=== PATIENT | female | born 1985 | race Caucasian/White ===

== ENCOUNTER 2020-09-20 02:51 | Emergency (ER) | payer MEDICAID ==
[~2020-09-20] VITALS: Ht 170.2 cm; Wt 137.0 kg
[2020-09-20] MEDS ORDERED: LORA0.5T21 PO (03:15)
--- NOTE | 2020-09-20 03:15 | PHYS DOC ---
Past History Past Medical History: Anxiety, Cancer (thyroid), Diabetes, Hypertension Additional Past Surgical Histo: Thyroidectomy Smoking: Cigarettes Alcohol Use: None Drug Use: None General Adult EDM: Chief Complaint: ANXIETY/PANIC ATTACK HPI: HPI: 35-year-old female presents with report of increased anxiety since yesterday. Patient reports she has taken her previously prescribed hydroxyzine 25 mg tablets 3 times daily without significant improvement of her anxiety. Patient reports they recently moved to the area. Reports increased life stressors. Denies suicidal or homicidal ideation. Patient reports she feels she cannot break this current panic attack and seeks help. Denies . Patient reports shortness of breath which is consistent with her prior panic attacks. Review of Systems: Review of Systems: Constitutional: Denies fever or chills Eyes: Denies redness or eye pain HENT: Denies nasal congestion or sore throat Respiratory: Denies cough; reports shortness of breath Cardiovascular: Denies chest pain or palpitations GI: Denies abdominal pain, nausea, or vomiting : Denies dysuria or hematuria Musculoskeletal: Denies back pain or joint pain Integument: Denies rash or skin lesions Neurologic: Denies headache, focal weakness or sensory changes Complete systems were reviewed and found to be within normal limits, except as documented in this note. Physical Exam: PE: Constitutional: Well developed, obese, no acute distress, non-toxic appearance HENT: Normocephalic, atraumatic Eyes: PERRL, EOMI, conjunctiva normal, no discharge, no nystagmus Neck: Normal range of motion, no tenderness, supple Lungs & Thorax: No respiratory distress, equal chest rise and fall Skin: Warm, dry, no erythema, no rash Extremities: No tenderness, ROM intact, no edema Neurologic: Alert and oriented X 3, normal motor function, normal sensory function, no focal deficits noted Psychologic: Affect anxious, judgment normal, denies suicidal or homicidal ideation EKG: EKG: [] Radiology/Procedures: Radiology/Procedures: [] Course & Med Decision Making: Course & Med Decision Making Patient presents with HPI and physical exam consistent for acute on chronic anxiety exacerbation. Patient reports increased life stressors. Patient reports symptoms similar to prior episodes but lasting longer than her typical panic attacks and not responsive to her previously prescribed medications. IM Ativan therefore provided. Patient stable for discharge with outpatient follow-up with PCP/mental health. Numbers for [facility] provided as well as list of PCPs in the area. Discussed findings and plan with patient, who acknowledges understanding and agreement. Yan Disclaimer: Yan Disclaimer: This electronic medical record was generated, in whole or in part, using a voice recognition dictation system. Departure Departure: Impression: Primary Impression: Panic attack Disposition: 01 DC HOME SELF CARE/HOMELESS Condition: STABLE Referrals: PCP,NO (PCP) Patient Instructions: Anxiety and Panic Attacks, [id number] Additional Instructions: Please call and make an appointment to follow with a family physician and or follow with the [facility] or [facility] for mental health. [facility] Address: [address] [place] [id number] Please call [facility] at to seek help for your mental health and/or drug/alcohol abuse. Scripts Lorazepam (ATIVAN ) 0.5 Mg Tablet 0.5 MG PO PRN TID PRN for ANXIETY, #10 TAB Prov: ADI CLIFFORD DO 09/20/20 ADI CLIFFORD DO Sep 20, 2020 03:15
[2020-09-20 03:45] VITALS: BP 190/122
== END 2020-09-20 03:45 | disposition home or self-care (01) ==
LOC: ER 02:51
DX: F41.0 Panic disorder [episodic paroxysmal anxiety] (principal); I10 Essential (primary) hypertension; E11.9 Type 2 diabetes mellitus without complications; F17.210 Nicotine dependence, cigarettes, uncomplicated
CPT/HCPCS: 96372; 99283; J2060

== ENCOUNTER 2020-10-21 23:16 | Emergency (ER) | payer MEDICAID ==
[~2020-10-21] VITALS: Ht 170.2 cm; Wt 137.0 kg
[~2020-10-21 23:16] MED LIST: LORA0.5T21 PO
[2020-10-21 23:30] VITALS: BP 197/116
--- NOTE | 2020-10-21 23:41 | PHYS DOC ---
Past History Past Medical History: Anxiety, Cancer, Diabetes, Hypertension Additional Past Medical Histor: preeclampsia, thyroid ca Past Surgical History: , Other Additional Past Surgical Histo: Thyroidectomy Smoking: Cigarettes Alcohol Use: None Drug Use: None Adult General Chief Complaint Chief Complaint: ANXIETY/PANIC ATTACK HPI HPI Patient is a 35-year-old female who presents with a chief complaint of seasonal allergy exacerbation and anxiety. States that [place] allergies have been acting up over the last couple of days. States she has had some sneezing, and itchy eyes. States that allergies caused her to have anxiety as well which she is taking hydroxyzine for. States that the hydroxyzine does not seem to be helping with her allergy symptoms. States that since he just got here they do have a primary care physician and would like some information on local physicians as [place]. Denies headache, sore throat, cough, chest pain, shortness of breath, abdominal pain, nausea, vomiting, diarrhea. Denies any other Covid/flu/cold symptoms. States she is otherwise eating and drinking normally. States she is making urine and stool normally for her. Review of Systems Review of Systems Review of systems otherwise unremarkable except noted in HPI Allergies Allergies Allergies Coded Allergies Type Severity Reaction Last Updated Verified morphine Allergy Unknown 09/20/20 Yes Physical Exam Physical Exam Constitutional: Well developed, well nourished, no acute distress, non-toxic appearance. [] HENT: Normocephalic, atraumatic, bilateral external ears normal, oropharynx moist, mild oropharyngeal erythema with no edema, no oral exudates, nose normal. [] Eyes: PERRLA, EOMI, mild bilateral conjunctivitis, no discharge. [] Neck: Normal range of motion, no tenderness, supple, no stridor. [] Cardiovascular:Heart rate regular rhythm, no murmur [] Lungs & Thorax: Bilateral breath sounds clear to auscultation [] Skin: Warm, dry, no erythema, no rash. [] Extremities: No tenderness, no cyanosis, no clubbing, ROM intact, no edema. [] Neurologic: Alert and oriented X 3, normal motor function, normal sensory function, no focal deficits noted. [] Psychologic: Affect normal, judgement normal, mood normal. [] Current Patient Data Vital Signs Vital Signs Date Time Temp Pulse Resp B/P (MAP) Pulse Ox O2 Delivery O2 Flow Rate FiO2 10/21/20 23:30 97.6 100 16 197/116 (143) 96 EKG EKG [] Radiology/Procedures Radiology/Procedures [] Heart Score C/O Chest Pain: No Risk Factors: Risk Factors: DM, Current or recent (<one month) smoker, HTN, HLP, family history of CAD, obesity. Risk Scores: Risk Factors: DM, Current or recent (<one month) smoker, HTN, HLP, family history of CAD, obesity. Course & Med Decision Making Course & Med Decision Making Patient is a 35-year-old female who presents with seasonal allergy symptoms and anxiety Vital signs notable for hypertension. Physical exam noted above. Patient given dose of dexamethasone and Benadryl for seasonal allergy symptoms. Advised to cease taking her hydroxyzine if it is not helping and causes her anxiety until she follows up with her primary care physician. Given list of local primary care physicians in the area and advised to call Friday to discuss ED visit, establish care and need for seasonal allergy management at home as well as possible hypertension. Patient states she has never had hypertension before. Patient grateful, verbalized understanding and agreed with plan of discharge. [] Dragon Disclaimer Dragon Disclaimer This electronic medical record was generated, in whole or in part, using a voice recognition dictation system. Departure Departure: Disposition: 01 DC HOME SELF CARE/HOMELESS Condition: GOOD Referrals: PCP,NO (PCP) MARY ANN DONAHUE MD Patient Instructions: Allergic Conjunctivitis, Allergic Rhinitis, Hypertension Additional Instructions: Please read all of the attached information. As discussed you can use [id number] Afrin, nasal steroids and Benadryl as needed for seasonal allergy symptoms. You were given a list of local primary care physicians. Please call first thing Friday morning to establish care, discuss your ED visit, need for seasonal allergy management at home, anxiety management and evaluation for hypertension. Please come back to the emergency department immediately with new or concerning symptoms as discussed. RAJWINDER DEGROOT MD Oct 21, 2020 23:41
[2020-10-22] MEDS ORDERED: DEXAMETHASONE 4 MG TABLET PO ONE
[2020-10-22] MEDS ORDERED: diphenhydrAMINE HCL 25 MG CAPSULE PO ONE
== END 2020-10-21 23:48 | disposition home or self-care (01) ==
LOC: ER 23:16
DX: R06.2 Wheezing (principal); F41.9 Anxiety disorder, unspecified; E11.9 Type 2 diabetes mellitus without complications; I10 Essential (primary) hypertension; F17.210 Nicotine dependence, cigarettes, uncomplicated; Z90.89 Acquired absence of other organs; Z98.890 Other specified postprocedural states; Z85.850 Personal history of malignant neoplasm of thyroid
CPT/HCPCS: 99283; J8540; Q0163

== ENCOUNTER 2020-10-30 01:53 | Emergency (ER) | payer MEDICAID, OTHER ==
[~2020-10-30] VITALS: Ht 170.2 cm; Wt 149.0 kg
[2020-10-30 01:53] VITALS: BP 177/123
--- NOTE | 2020-10-30 01:54 | PHYS DOC ---
Past History Past Medical History: Anxiety, Cancer, Diabetes, Hypertension Additional Past Medical Histor: preeclampsia, thyroid ca Past Surgical History: , Other Additional Past Surgical Histo: Thyroidectomy Smoking: Cigarettes Alcohol Use: None Drug Use: None General Adult HPI: HPI: ".. I think I am having an allergic reaction.. I took 0.5 mg Ativan.. because I was having a major panic attack.. all my family was over for .. but now my tongue feels fat... " Patient is a 35 year old female who presents with above hx and complaints possible allergic reaction to Ativan. Patient still extremely anxious. Did take a dose of her children's Benadryl 10 mg prior to arrival. Patient has history of previous episodes of anxiety and panic attacks. Last seen for similar condition on 09/20/2020. [facility] for her mental health issues. Patient has history of morbid obesity, hype rtension, cervical cancer, bronchitis, diabetes, anxiety and panic attacks. Patient denies any recent travel. No specific ill contacts. No other new medications . Patient did have intake of multiple food dishes which may have had a new type fluid in it she did not have previous been exposed . Patient does admit to being under extreme emotional stress due to the visitation of magaly szymanski relatives on her 's side of family with a weekend. No history of fever or chills. No history of recent travel. No history of specific ill contacts. Patient denies any history of immunosuppression. Review of Systems: Review of Systems: Constitutional: Denies fever or chills Eyes: Denies change in visual acuity HENT: Complains of nasal congestion and a fat tongue Respiratory: Denies cough or shortness of breath Cardiovascular: Denies chest pain or edema GI: Denies abdominal pain, nausea, vomiting, bloody stools or diarrhea : Denies dysuria Musculoskeletal: Denies back pain or joint pain Integument: Denies rash Neurologic: Denies headache, focal weakness or sensory changes Endocrine: Denies polyuria or polydipsia Lymphatic: Denies swollen glands Psychiatric: History of depression, anxiety and panic attacks Family History: Family History: Noncontributory Current Medications: Current Meds: See nursing for home meds Allergies: Allergies: Allergies Coded Allergies Type Severity Reaction Last Updated Verified morphine Allergy Unknown 09/20/20 Yes Physical Exam: PE: Constitutional: In acute emotional distress, non-toxic appearance. [] HENT: Normocephalic, atraumatic, bilateral external ears normal, oropharynx moist, no oral exudates, nose normal. [] Eyes: PERRLA, EOMI, conjunctiva normal, no discharge. [] Neck: Normal range of motion, no tenderness, supple, no stridor. [] Cardiovascular:Heart rate regular rhythm, no murmur [] Lungs & Thorax: Bilateral breath sounds equal at apex with scattered wheezes on auscultation [] bibasilar crackles Abdomen: Bowel sounds normal, soft, no tenderness, no masses, no pulsatile masses. Morbid obesity. Old surgical scars. Skin: Warm, dry, no erythema, no rash. [] Back: No tenderness, no CVA tenderness. [] Extremities: No tenderness, no cyanosis, no clubbing, ROM intact, bilateral ankle edema. [] Neurologic: Alert and oriented X 3, normal motor function, normal sensory function, no focal deficits noted. [] Psychologic: Affect extremely anxious, judgement normal, mood depressed but denies any suicidal or homicidal ideation EKG: EKG: Declined by patient Radiology/Procedures: Radiology/Procedures: Declined by patient [] Heart Score: C/O Chest Pain: N/A Risk Factors: Risk Factors: DM, Current or recent (<one month) smoker, HTN, HLP, family history of CAD, obesity. Risk Scores: Score 0 - 3: 2.5% MACE over next 6 weeks - Discharge Home Score 4 - 6: 20.3% MACE over next 6 weeks - Admit for Clinical Observation Score 7 - 10: 72.7% MACE over next 6 weeks - Early Invasive Strategies Course & Med Decision Making: Course & Med Decision Making Pertinent Labs and Imaging studies reviewed. (See chart for details) Treatment plan discussed with patient. Patient requests to be treated clinically. No labs or x-rays at this time. Patient given Depo-Medrol 40 IM, Pepcid 20, and use MDI. MOM 30 cc. Patient continue Pepcid 20 twice daily for the next 10 days. Use MDI 2 puffs 4 times a day. Take Benadryl 25 to 50 mg 4 times a day. Follow-up primary care. Return if any concerns. Patient encouraged to follow-up at the counseling center. Patient courage to stop smoking. Impression: 1. Allergic Reaction 2. Anxiety and panic disorder 3. Morbid obesity 4. Diabetes [] Dragon Disclaimer: Dragon Disclaimer: This electronic medical record was generated, in whole or in part, using a voice recognition dictation system. Departure Departure: Referrals: PCP,NO (PCP) Yan Disclaimer This chart was dictated in whole or in part using Voice Recognition software in a busy, high-work load, and often noisy Emergency Department environment. It may contain unintended and wholly unrecognized errors or omissions. JOE FOSTER MD Oct 30, 2020 01:54
[2020-10-30] MEDS ORDERED: MAGNESIUM HYDROXIDE 2,400 MG/30 ML ORAL.SUSP. PO ONE (02:15)
[2020-10-30] MEDS ORDERED: methylPREDNISolone ACETATE 40 MG/ML VIAL. IM ONE (02:15)
[2020-10-30] MEDS ORDERED: ALBUTEROL SULFATE 8GM INHALER. INH ONE (02:15)
[2020-10-30] MEDS ORDERED: diphenhydrAMINE HCL 25 MG CAPSULE PO ONE (02:15)
[2020-10-30] MEDS ORDERED: FAMOTIDINE 20 MG TABLET PO ONE (02:15)
[2020-10-30 04:05] LABS: BACTERIA,URINE 0 /HPF (0-FEW); BILIRUBIN,URINE NEG (NEG); CLARITY,URINE CLEAR; COLOR,URINE YELLOW; GLUCOSE,URINE 100 mg/dL (NEG); NITRITE,URINE NEG (NEG); RBC,URINE 0 /HPF (0-2); SQUAMOUS EPITHELIAL CELL,UR MOD /LPF; UROBILINOGEN,URINE 0.2 mg/dL (0.2 mg/dL); WBC,URINE OCC /HPF (0-4)
[2020-10-30 04:11] LABS: BARBITURATES NEG (NEG); BENZODIAZEPINES NEG (NEG); CANNABINOIDS NEG (NEG); COCAINE NEG (NEG); METHADONE NEG (NEG); OPIATES NEG (NEG); PHENCYCLIDINE NEG (NEG)
[2020-10-30 04:19] LABS: AMPHETAMINE/METHAMPHETAMINE NEG (NEG)
== END 2020-10-30 03:30 | disposition home or self-care (01) ==
LOC: ER 01:53
DX: T78.40XA Allergy, unspecified, initial encounter (principal); E11.9 Type 2 diabetes mellitus without complications; I10 Essential (primary) hypertension; F17.210 Nicotine dependence, cigarettes, uncomplicated; F41.9 Anxiety disorder, unspecified; F41.0 Panic disorder [episodic paroxysmal anxiety]; E66.01 Morbid (severe) obesity due to excess calories; Z68.43 Body mass index [BMI] 50.0-59.9, adult; Z88.5 Allergy status to narcotic agent
CPT/HCPCS: 36415; 80307; 81001; 81025; 94640; 96372; 99284; J1030; Q0163

== ENCOUNTER 2021-08-07 12:17 | Emergency (ER) | payer OTHER ==
[~2021-08-07] VITALS: Ht 170.2 cm; Wt 134.1 kg
[2021-08-07] MEDS ORDERED: IV NORMAL SALINE 1,000ML 1,000 ML IV ONE (13:00)
--- NOTE | 2021-08-07 13:03 | PHYS DOC ---
Past History Past Medical History: Anxiety, Cancer, Diabetes, Hypertension Additional Past Medical Histor: preeclampsia, thyroid ca, lower ext edema Past Surgical History: , Other Additional Past Surgical Histo: Thyroidectomy Smoking: Cigarettes Alcohol Use: None Drug Use: None General Adult EDM: Chief Complaint: MULTIPLE COMPLAINTS HPI: HPI: 36-year-old female presents with cough, congestion, body aches for the last 4 days. She has developed a headache today. She was tested for COVID-19 yesterday but did not get the result. She is pretty sure she has COVID-19. She presents today because her blood pressure was 200/160. Her primary care physician recommended that she come to the ER. The patient is normally controlled on 10 mg of lisinopril. She has been taking her medications. She has had decreased appetite and is not drinking as much as she should. She has a cough but has not really experienced shortness of breath. Review of Systems: Review of Systems: Constitutional: Denies fever or chills. Body aches, fatigue Eyes: Denies change in visual acuity HENT: Denies nasal congestion or sore throat Respiratory: Cough without shortness of breath Cardiovascular: Denies chest pain or edema GI: Denies abdominal pain, nausea, vomiting, bloody stools or diarrhea : Denies dysuria Musculoskeletal: Denies back pain or joint pain Integument: Denies rash Neurologic: Headache. Denies focal weakness or sensory changes Endocrine: Denies polyuria or polydipsia Lymphatic: Denies swollen glands Psychiatric: Denies depression or anxiety Allergies: Allergies: Allergies Coded Allergies Type Severity Reaction Last Updated Verified morphine Allergy Unknown 09/20/20 Yes Physical Exam: PE: Constitutional: Well developed, well nourished, morbidly obese, no acute distress, non-toxic appearance. [] HENT: Normocephalic, atraumatic, bilateral external ears normal, oropharynx moist, no oral exudates, nose normal. [] Eyes: PERRLA, EOMI, conjunctiva normal, no discharge. [] Neck: Normal range of motion, no tenderness, supple, no stridor. [] Cardiovascular: Heart rate regular rhythm, no murmur [] Lungs & Thorax: Bilateral breath sounds clear to auscultation [] Abdomen: Bowel sounds normal, soft, no tenderness, no masses, no pulsatile masses. [] Skin: Warm, dry, no erythema, no rash. [] Back: No tenderness, no CVA tenderness. [] Extremities: No tenderness, no cyanosis, no clubbing, ROM intact, no edema. [] Neurologic: Alert and oriented X 3, normal motor function, normal sensory function, no focal deficits noted. [] Psychologic: Affect normal, judgement normal, mood normal. [] Current Patient Data: Vital Signs: Vital Signs Date Time Temp Pulse Resp B/P (MAP) Pulse Ox O2 Delivery O2 Flow Rate FiO2 08/07/21 12:33 98.2 108 20 188/117 (140) 96 Room Air EKG: EKG: [] Radiology/Procedures: Radiology/Procedures: [] Impressions: EXAM: Chest, single view. HISTORY: Shortness of breath. COMPARISON: None. FINDINGS: A frontal view of the chest is obtained. There is no infiltrate, pleural effusion or pneumothorax. The heart is normal in size. IMPRESSION: No acute pulmonary finding. Electronically signed by: Shanta Lundy MD (08/07/2021 1:17 PM) [id number] DICTATED AND SIGNED BY: SHANTA LUNDY MD DATE: 08/07/21 1317 CC: YOLANDA MAURER DO; MARY ANN DONAHUE MD ~MTH0 0 Heart Score: C/O Chest Pain: N/A Risk Factors: Risk Factors: DM, Current or recent (<one month) smoker, HTN, HLP, family history of CAD, obesity. Risk Scores: Score 0 - 3: 2.5% MACE over next 6 weeks - Discharge Home Score 4 - 6: 20.3% MACE over next 6 weeks - Admit for Clinical Observation Score 7 - 10: 72.7% MACE over next 6 weeks - Early Invasive Strategies Course & Med Decision Making: Course & Med Decision Making Pertinent Labs and Imaging studies reviewed. (See chart for details) The patient's labs are unremarkable. His rapid influenza and COVID are negative. Chest x-ray is negative for acute findings. This still could be COVID-19. She should wait for the results of her test from yesterday before leaving quarantine. She is stable for discharge at this time. [] Dragon Disclaimer: Dragon Disclaimer: This electronic medical record was generated, in whole or in part, using a voice recognition dictation system. Departure Departure: Impression: Primary Impression: Suspected COVID-19 virus infection Disposition: HOME / SELF CARE / HOMELESS Condition: STABLE Referrals: MARY ANN DONAHUE MD (PCP) Patient Instructions: Viral Syndrome Additional Instructions: You have been tested for or diagnosed with COVID-19. It is an infection caused by a new type of coronavirus. COVID-19 will cause cold-like or mild flu symptoms in most. It can cause more severe symptoms like problems breathing in some. There is no treatment for COVID-19. The body will clear the infection over time. Self-care will help to ease discomfort. Steps to Take: Self-Care Rest as needed. Healthy habits may help you feel better. Steps include: Choose healthy foods including fruits and vegetables. Drink water throughout the day. Get plenty of sleep each night. If you smoke, try to quit. It may ease breathing. Avoid alcohol. Keep Others Healthy The virus can spread to others. Droplets are released every time you sneeze or cough. The droplets can get into the mouth, nose, or eyes of people near you and lead to infection. To lower the chances of spreading COVID-19 to others: Stay at home until your doctor has said it is safe to leave. If you tested positive this will mean staying isolated until both of the following are true: At least 7 days have passed since the start of illness. You are free of fever for at least 72 hours without the use of medicine. During this time: - Avoid public areas, events, or transportation. Do not return to work or school until your doctor has said it is safe to do so. - Call ahead if you need to go to a medical center. Let them know you may have COVID-19. It will help them guide you where to go. They may also ask you to wear a facemask when you come to the office. - If you call for emergency medical services, let them know you may have COVID- 19. While at home: - Try to avoid close contact with others. Stay about 6 feet away. - If possible, spend most of your time in a separate room from others. - Use a face mask if you will be in close contact with others such as sharing a room or vehicle. - Have someone wipe down common surfaces in the home. Use household trimming press operator every day on areas like doorknobs, counters, or sinks. - Cough or sneeze into a tissue. Throw the tissue away right after use. If a tissue is not available, cough or sneeze into your elbow. - Wash your hands often. Wash them after sneezing or coughing. Use soap and water and wash for at least 20 seconds. Alcohol based hand booth cleaner can be used if soap and water is not available. - Do not prepare food for others. Avoid sharing personal items like forks, spoons, or toothbrushes. - Avoid close contact with pets while you are sick. There is no evidence of the virus passing to pets. This is a safety step until more is known about this virus. Isolation can be frustrating. Social interaction can help. Keep in touch with friends and family through phone and tech options. You can still interact with others in yo ur home, just keep a safe distance of about 6 feet. Follow-up: Your doctors office will check in with you to see if there are any changes in your health. You may be asked to keep track of symptoms to share with them. They will also let you know when you are clear to be in public again. Problems to Look Out For: Contact your doctor if your recovery is not going as you expect. Get emergency care if you have problems such as: - Trouble breathing - Nonstop chest pain or pressure - Changes in awareness, confusion, or problems waking - Lips or face have bluish color - Worsening of symptoms If you think you have an emergency, call for emergency medical services right away. As taken from [facility] YOLANDA MAURER DO Aug 07, 2021 13:03
[2021-08-07] MEDS ORDERED: cloNIDine HCL 0.1 MG TABLET PO ONE (13:15)
--- NOTE | 2021-08-07 13:20 | RAD ---
EXAM: Chest, single view. HISTORY: Shortness of breath. COMPARISON: None. FINDINGS: A frontal view of the chest is obtained. There is no infiltrate, pleural effusion or pneumo thorax. The heart is normal in size. IMPRESSION: No acute pulmonary finding. Electronically signed by: Shanta Lundy MD (08/07/2021 1:17 PM) [id number]
[2021-08-07 13:33] LABS: BASO # 0.1 x10^3/uL (0.0-0.2); BASO % 1 % (0-3); EOS # 0.1 x10^3/uL (0.0-0.7); EOS % 1 % (0-3); HEMATOCRIT 39.1 % (36.0-47.0); HEMOGLOBIN 12.9 g/dL (12.0-15.5); LYMPH # 2.8 x10^3/uL (1.0-4.8); LYMPH % 26 % (24-48); MEAN CORPUSCULAR HEMOGLOBIN 30 pg (25-35); MEAN CORPUSCULAR HGB CONC 33 g/dL (31-37); MEAN CORPUSCULAR VOLUME 91 fL (79-100); MONO # 0.6 x10^3/uL (0.0-1.1); MONO % 6 % (0-9); NEUT # 7.2 x10^3uL (1.8-7.7); NEUT % 66 % (31-73); PLATELET COUNT 416 x10^3/uL (140-400); RED BLOOD COUNT 4.31 x10^6/uL (3.50-5.40); RED CELL DISTRIBUTION WIDTH 14.1 % (11.5-14.5); WHITE BLOOD COUNT 10.9 x10^3/uL (4.0-11.0)
[2021-08-07 13:38] LABS: CALCIUM 9.5 mg/dL (8.5-10.1); CREATININE 0.9 mg/dL (0.6-1.0); GFR 71.7; POTASSIUM 3.8 mmol/L (3.5-5.1)
[2021-08-07 13:44] LABS: ALBUMIN 4.2 g/dL (3.4-5.0); ALBUMIN/GLOBULIN RATIO 1.1 (1.0-1.7); TOTAL BILIRUBIN 0.2 mg/dL (0.2-1.0)
[2021-08-07 13:54] LABS: INFLUENZA A PATIENT NEGATIVE (NEGATIVE); INFLUENZA B PATIENT NEGATIVE (NEGATIVE)
[2021-08-07] MEDS ORDERED: hydrALAZINE 20 MG/ML VIAL. IV ONE (15:00)
[2021-08-07 15:15] VITALS: BP 158/106
[2021-08-07] MEDS ORDERED: KETOROLAC 30 MG/ML VIAL. IVP ONE (15:15)
== END 2021-08-07 15:25 | disposition home or self-care (01) ==
LOC: ER 12:17
DX: R05.9 Cough, unspecified (principal); R09.81 Nasal congestion; R51.9 Headache, unspecified; E11.9 Type 2 diabetes mellitus without complications; I10 Essential (primary) hypertension; F17.210 Nicotine dependence, cigarettes, uncomplicated; Z20.822 Contact with and (suspected) exposure to COVID-19; Z88.5 Allergy status to narcotic agent
CPT/HCPCS: 36415; 71045; 80053; 85025; 96361; 96374; 96375; 99284; J0360; J1885; J7030

== ENCOUNTER 2021-12-04 14:59 | Emergency (ER) | payer OTHER ==
[~2021-12-04] VITALS: Ht 170.2 cm; Wt 134.1 kg
[2021-12-04 15:03] VITALS: BP 186/124
--- NOTE | 2021-12-04 15:15 | PHYS DOC ---
Past History Past Medical History: Anxiety, Cancer, Diabetes, Hypertension Additional Past Medical Histor: preeclampsia, thyroid ca, lower ext edema Past Surgical History: , Other Additional Past Surgical Histo: Thyroidectomy Smoking: Cigarettes Alcohol Use: None Drug Use: None Adult General Chief Complaint Chief Complaint: HYPOGLYCEMIA HPI HPI Patient presents after having [place]cemic episode [place]. Patient states she is an insulin-dependent diabetic that is also on metformin. Patient states her metformin dose was increased 1 day ago. Patient states she did eat a normal breakfast and ate a normal lunch as well. Patient reports that approximately noon she began to feel as her sugar was likely dropping. Her glucose pump did alert her of the low glucose level and she was able to eat chocolate and increase this. Patient reports approximately 1 hour later she again began to feel that her sugar was dropping. The monitor again did alert her of this. Patient again was able to eat chocolate, level went as low as 40, but on EMS arrival sugar had improved, and the patient's mental status was fully at baseline. Patient currently feels at baseline. Review of Systems Review of Systems Constitutional: Denies fever or chills [] Eyes: Denies change in visual acuity, redness, or eye pain [] HENT: Denies nasal congestion or sore throat [] Respiratory: Denies cough or shortness of breath [] Cardiovascular: No additional information not addressed in HPI [] GI: Denies abdominal pain, nausea, vomiting, bloody stools or diarrhea [] : Denies dysuria or hematuria [] Musculoskeletal: Denies back pain or joint pain [] Integument: Denies rash or skin lesions [] Neurologic: Denies headache, focal weakness or sensory changes [] Endocrine: Denies polyuria or polydipsia [] All other systems were reviewed and found to be within normal limits, except as documented in this note. Allergies Allergies Allergies Coded Allergies Type Severity Reaction Last Updated Verified morphine Allergy Unknown 09/20/20 Yes Physical Exam Physical Exam Constitutional: Well developed, well nourished, no acute distress, non-toxic appearance. [] HENT: Normocephalic, atraumatic, bilateral external ears normal, oropharynx moist, no oral exudates, nose normal. [] Eyes: PERRLA, EOMI, conjunctiva normal, no discharge. [] Neck: Normal range of motion, no tenderness, supple, no stridor. [] Cardiovascular:Heart rate regular rhythm, no murmur [] Lungs & Thorax: Bilateral breath sounds clear to auscultation [] Abdomen: Bowel sounds normal, soft, no tenderness, no masses, no pulsatile masses. [] Skin: Warm, dry, no erythema, no rash. [] Back: No tenderness, no CVA tenderness. [] Extremities: No tenderness, no cyanosis, no clubbing, ROM intact, no edema. [] Neurologic: Alert and oriented X 3, normal motor function, normal sensory function, no focal deficits noted. [] Psychologic: Affect normal, judgement normal, mood normal. [] Current Patient Data Vital Signs Vital Signs Date Time Temp Pulse Resp B/P (MAP) Pulse Ox O2 Delivery O2 Flow Rate FiO2 12/04/21 15:03 98.5 107 16 186/124 (144) 97 Room Air EKG EKG [] Radiology/Procedures Radiology/Procedures [] Heart Score C/O Chest Pain: No Risk Factors: Risk Factors: DM, Current or recent (<one month) smoker, HTN, HLP, family h istory of CAD, obesity. Risk Scores: Risk Factors: DM, Current or recent (<one month) smoker, HTN, HLP, family history of CAD, obesity. Course & Med Decision Making Course & Med Decision Making Patient with initial glucose 253 in the emergency department. Patient will be monitored and have serial checks over the next 1 hour. Patient will need to contact her border guard for further guidance regarding her traditional pump settings and the recent increase in her metformin. It is possible that the increased dose of metformin led to overall lower basal levels in the pump at that point may be more substantial settings than needed. 1550-patient with serial Accu-Chek levels in the emergency department. Levels continue to be elevated with no further hypoglycemic episodes. Overall patient felt be stable for discharge home. Patient is to contact her primary care physician and border guard for further management of pump settings. Return precautions discussed at length. [] Dragon Disclaimer Dragon Disclaimer This electronic medical record was generated, in whole or in part, using a voice recognition dictation system. Departure Departure: Impression: Primary Impression: Hypoglycemia Disposition: HOME / SELF CARE / HOMELESS Condition: IMPROVED Referrals: MARY ANN DONAHUE MD (PCP) Patient Instructions: Hypoglycemia (Low Blood Sugar) Additional Instructions: Return for any worsening symptoms or other concerns. Contact your primary care physician as well as your endocrinology clinic for close follow-up and further outpatient discussion of your insulin and medication regimen. JEANINE RODRIGUEZ MD December 04, 2021 15:15
== END 2021-12-04 16:05 | disposition home or self-care (01) ==
LOC: ER 14:59
DX: E11.649 Type 2 diabetes mellitus with hypoglycemia without coma (principal); I10 Essential (primary) hypertension; F41.9 Anxiety disorder, unspecified; F17.210 Nicotine dependence, cigarettes, uncomplicated; Z88.5 Allergy status to narcotic agent
CPT/HCPCS: 82947; 99283